=== PATIENT | male | born 1970 | race Caucasian/White ===

== ENCOUNTER → 2017-07-14 | Outpatient (CLI) | payer OTHER ==
--- NOTE | 2017-07-14 15:42 | PCVCIMAG ---
APPROVED REPORT Study performed: 07/14/2017 14:40:42 EXAM: Comprehensive 2D, Doppler, and color-flow Echocardiogram BSA: 2.44 2D Dimensions LVEF(%): 56.39 (>50%) IVSd: 8.91 (7-11mm) LVDd: 54.05 mm PWd: 7.85 (7-11mm)Ascending Ao: 33.49 (22-36mm) LVDs: 37.95 (25-40mm) Left Atrium: 43.99 (27-40mm) Aortic Root: 34.27 mm LV Single Plane 4CH: 48.71 % LV Single Plane 2CH: 55.16 %Lees's LVEF: 51.94 % Biplane EF: 51.7 % Volumes Left Atrial Volume (Systole) Single Plane 4CH: 77.99 mLSingle Plane 2CH: 95.08 mL LA ESV Index: 36.00 mL/m2 Aortic Valve AoV Peak Homer.: 1.26 m/s AO Peak Gr.: 6.32 mmHgLVOT Max P.76 mmHg LVOT Max V: 0.97 m/s Mitral Valve MV Peak Gr.: 5.84 mmHg MV Mean Gr.: 2.59 mmHgE/A Ratio: 1.7 MV Decel. Time: 239.58 ms MV E Max Homer.: 1.38 m/s MV A Homer.: 0.81 m/s MV Max Homer.: 1.21 m/s MV Mean Homer.: 0.74 m/s MV VTI: 359.25 mm MV PHT: 104.12 ms MVA (PHT): 2.11 cm2 IVRT: 76.12 ms Pulmonary Valve PV Peak Homer.: 1.01 m/sPV Peak Gr.: 4.12 mmHg Pulmonary Vein P Vein S: 0.34 m/sP Vein A: 0.34 m/s P Vein D: 0.69 m/sP Vein A Dur.: 128.0 msec P Vein S/D Ratio: 0.49 Tricuspid Valve TR Peak Homer.: 1.93 m/s TR Peak Gr.: 14.96 mmHg Left Ventricle The left ventricle is normal size. There is normal LV segmental wall motion. There is normal left ventricular wall thickness. Left ventricular systolic function is normal. The left ventricular ejection fraction is within the normal range. LVEF is 55-60%. Right Ventricle The right ventricle is normal size. The right ventricular systolic function is normal. Atria Left atrium is mildly dilated. The right atrium size is normal. Aortic Valve The aortic valve is normal in structure. No aortic regurgitation is present. There is no aortic valvular stenosis. Mitral Valve Changes consistent with posteior leaflet repair Moderately severe to severe mitral regurgitation. No evidence of mitral valve stenosis Tricuspid Valve The tricuspid valve is normal in structure. Trace tricuspid regurgitation with PAP of 22 mmHg. Pulmonic Valve The pulmonary valve is normal in structure. There is no pulmonic valvular regurgitation. Great Vessels The aortic root is normal in size. Aortic sinus of valsalva mildly dilated to 4.2 cm. IVC is normal in size and collapses with >50% inspiration Pericardium There is no pericardial effusion. <Conclusion> Left ventricular systolic function is normal. There is normal LV segmental wall motion. LVEF 55-60% Left atrium is mildly dilated. The aortic valve is normal in structure. No aortic regurgitation or stenosis Changes consistent with posteior leaflet repair. Moderately severe to severe mitral regurgitation. Normal pulmonary artery pressures There is no pericardial effusion.
== END | disposition home or self-care (01) ==
LOC: PCVCIMAG 14:38
PROVIDERS: ATTEND Internal Medicine Cardiovascular Disease
DX: I05.9 Rheumatic mitral valve disease, unspecified (principal); R06.02 Shortness of breath; R94.31 Abnormal electrocardiogram [ECG] [EKG]; I45.10 Unspecified right bundle-branch block
CPT/HCPCS: 93005; 93306; G0463